=== PATIENT | female | born 1995 | race Caucasian/White ===

== ENCOUNTER 2023-07-08 10:28 | Emergency (ER) | payer OTHER ==
--- OUTSIDE RECORDS SUMMARY | 2023-07-08 10:34 | XMS REPORT | Continuity of Care Document ---
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 00:00:00 00:00:00 Visit [place] [id number] Communi 764922 Health 2020-05-27 2020-05-27 Office [facility] En counter/ Legacy 00:00:00 00:00:00 [facility] [id number] Communi 466175 Health 2020-05-27 2020-05-27 Office [facility] En counter/ Legacy 00:00:00 00:00:00 Visit Price [place] [id number] Communi 044896 Health 2020-05-27 2020-05-27 Office [facility] Encounter/ Legacy 00:00:00 00:00:00 Visit [facility] [id number] Com soheila 184083 Health 2020-05-27 2020-05-27 Office [facility] Encounter/ Legacy 00:00:00 00:00:00 Visit [facility] [id number] Com soheila [id number] Health 2020-05-27 2020-05-27 Office [facility] Encounter/ Legacy 00:00:00 00:00:00 Visit [facility] [id number] Com soheila [id number] Health 2020-05-27 2020-05-27 Office [facility] Encounter/ Legacy 00:00:00 00:00:00 Visit [facility] [id number] Com soheila [id number] [facility] 2020-05-27 2020-05-27 Office Patail, [facility] Encounter/ Legacy 00:00:00 00:00:00 Visit [facility] [id number] Com soheila [id number] [facility] 2020-05-27 2020-05-27 Office Chaz, Corazon [facility] Encou nter/ Legacy 00:00:00 00:00:00 Visit Diane Dawson [phone] Candy Weaver [id number] [facility] Health Patail, [facility] 2020-05-27 2020-05-27 Office Patail, [facility] Encounter/ Legacy 00:00:00 00:00:00 Visit [facility] [id number] Com soheila [id number] [facility] 2020-04-03 2020-04-03 Emergency ERLINDA, [facility] 064 [id number] [place] 00:00:00 00:00:00 BOSSMAN 392 Method i 2020-02-08 2020-02-08 Emergency ALEX, THA [facility] 2100 [id number] [place] 00:00:00 00:00:00 256 Method i 2019-10-18 2019-10-18 Emergency REICHL, [facility] 064 [id number] [place] 00:00:00 00:00:00 JOHN 031 Method i 2019-09-25 2019-09-25 Emergency REICHL, [facility] 064 [id number] [place] 00:00:00 00:00:00 JOHN 438 Method i 2019-08-17 2019-08-17 Emergency [facility] 064 [id number] [place] 00:00:00 00:00:00 457 Method i 2019-07-01 2019-07-01 Emergency VANDER [facility] 064 [id number] [place] 00:00:00 00:00:00 MONICA, 971 Method i FADIA 2016-10-10 2016-10-10 Emergency NOLAN, [facility] [id number] [place] 00:00:00 00:00:00 ZAINAB 455 Method i 2016-08-23 2016-08-23 Emergency PATY, [facility] 064 [id number] [place] 00:00:00 00:00:00 NICOLE 007 Method i 2015-12-09 2015-12-09 Outpatient VELAZQUEZ, [facility] 074 [id number] [place] 00:00:00 00:00:00 LATOIA [address] 2015-10-28 2015-10-28 Emergency KOENIG, [facility] 064 [id number] 85 [place] 00:00:00 00:00:00 DAI [address] 2015-10-14 2015-10-14 Emergency [facility] [id number] [place] 00:00:00 00:00:[address] Results Test Description Test Time Test Comments Results Result [facility] e Comments - XR WRIST 3 + V 2022-04-25 RT 18:36:00 [facility] : 1995 Sex: F FAX: Fercho Ricardo [phone] [place]: St: PRE Name: TASHA MATSON [facility] : 1995 Age/S: 26/F [facility] Unit #: [id number] Loc: [place] [address] Phys: Fercho Ricardo MD Acct: [id number] Dis Date: Status: PRE ER PHONE #: [phone] Exam Date: 04/25/2022 1833 FAX #: [phone] Reason: wrist pain, deformity EXAMS: CPT CODE: [id number] XR WRIST 3 + V RT 60164 REASON FOR EXAM: wrist pain, deformity EXAM ORDER DATE: 04/25/2022 5:54 PM Ordering: Fercho Ricardo MD Attending:Fercho Ricardo MD Location:[facility] PROCEDURE: - XR WRIST 3 + V RT FINDINGS: 3 views of the right wrist were obtained. The osseous structures are unremarkable in size and shape. The joint spaces are maintained. No evidence of fracture. The radiocarpal joint space is intact. Mild soft tissue edema. IMPRESSION: Mild soft tissue edema. No acute underlying fractures. at 1836 Reported and signed by: Robin Jasso M.D. CC: Fercho Ricardo MD Technologist: Anita Franco RT(R) Trnscrd Date/Time/By: 04/25/2022 (1835) : By: [email or web address] Orig Print D/T: S: 04/25/2022 (5470) PAGE 1 Signed Report Strep screen culture 2022-02-02 16:08:00 Test Item Value Reference Range Interpretation Comme nts Strep screen culture No beta hemolytic Sp ecimen InformationSpecimen isolate (test code = Streptococci isolated Source: ThroatSpecimen Site: Not 54-0) otherwise speci [place] [address] LEAD [id number] 18:23:2912 LEAD EKG FOR [facility] Test Date: [id number] Name: TASHA MATSON Department: 5520Patient ID: [id number] Room: Gender: F 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: 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: 1995 Requested By: RAFA QUINTERO Order Number: [id number] Reading MD: Kevin Osorio MeasurementsIntervals [place] Rate: 71 P: 74PR: 147 QRS: 81QRSD: 99 T: 80QT: 407 QTc: 429 Interpretive StatementsSINUS RHYTHMElectronically Signed On 11-29-2021 4:07:46 CDT by Kevin Osorio [place] [address] LEAD [id number] 17:20:1012 LEAD EKG FOR [facility] Test Date: 2212-00-37Dnu Name: TASHA MATSON Department: 5520Patient ID: [id number] Room: Gender: F 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: [id number]: 1995 Requested By: RAFA QUINTERO Order Number: [id number] Catherine MD: Kevin Osorio MeasurementsIntervals [place] Rate: 67 P: 69PR: 144 QRS: 75QRSD: 99 T: 86QT: 420 QTc: 435 Interpretive StatementsSINUS RHYTHMElectronically Signed On 11-29-2021 4:07:51 CDT by [facility] Ab+HIV1 p24 Ag SerPl Ql [id number] 16:02:13 Test Item Value Reference Range Interpretation Comments HIV 1+2 Ab+HIV1 p24 Ag SerPl Ql IA NEGATIVE Negative (test code = 84649-6) [facility] TROPONIN I POC docked [id number] 14:42:12 Test Item Value Reference Range Interpretation Comments Troponin POC (test 0.00 ng/mL 0.00-0.08 Physician code = 20929970) Notified BRIAN (test code = BRIAN) <0.08 ng/mL Normal>=0.08 ng/mL Positive for Myocardial injuryNote: The >=0.08 ng/mL cTnI is at the 99th percentile of the non-AMI population. Lab Interpretation Normal (test code = 69695-4) Located within [facility] CREATININE POC docked [id number] 14:35:10 Test Item Value Reference Range Interpretation Comments Creatinine POC (test 0.6 mg/dL 0.6-1.3 Physici an Notified code = 35148121) eGFR If non- Am >120 See_Comment [Aut omated message] (test code = 38517839) The s ystem which generated this result transmit solitario reference range : >=90 mL/min/1.7 3 m2. The reference r chetan was not used to interpret this result as normal/abnormal . eGFR If Am (test >120 See_Comment [A utomated message] code = 79182240) The system which generated this result transmit solitario reference range : >=90 mL/min/1.7 3 m2. The reference r chetan was not used to interpret this result as normal/abnormal . Lab Interpretation (test Normal code = 99624-8) Located within [facility] BMP POC docked [id number] 14:35:05 Test Item Value Reference Range Interpretation Comments Sodium POC (test code = 140 mmol/L 136-145 73893440) Potassium POC (test code 3.8 mmol/L 3.5-5.1 = 63815070) Chloride POC (test code 103 mmol/L 98-107 = 98442220) TCO2 POC (test code = 33 mmol/L 21-32 H Physic ashley Notified 46071664) Urea Nitrogen POC (test 13 mg/dL 7-18 code = 07555558) Glucose POC (test code = 97 mg/dL 74-106 52544272) Hemoglobin POC (test 13.9 g/dL 12-16 code = 80168451) Hematocrit POC (test 41.0 % 37.0-47.0 code = 05900413) Lab Interpretation (test Abnormal code = 35075-5) [facility] HUMERUS 2 + V [id number] 08:46:00 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 COMPARISON: None available. Location: [facility]. 2 views of the left humerus: No acute fracture or dislocation. Joint spaces are preserved. No erosive or destructive changes. Mineralization and soft tissues are normal. IMPRESSION: No acute fracture or dislocation. at 0846 Reported and signed by: Aurelio Alegre M.D. CC: Alice Finney NP Technologist: Mane Malhotra RT(R) Trnscrd Date/Time/By: 11/11/2020 (0846) : By: [email or web address] Orig Print D/T: S: 11/11/2020 (0849) PAGE 1 Signed ReportHerpes Simplex Virus [id number] 15:44:09 Test Item Value Reference Range Interpretation Comments Herpes Simplex Virus Genital (test code no = 4258) [facility], [id number] 15:44:09 Test Item Value Reference Range Interpretation Comments test, type (test code = ER 2106-3) [facility]nitrite, urine, fjketclodhhtzdst4516-90-75 15:44:09 Test Item Value Reference Range Interpretation Comments nitrite, urine, semiquantitative (test Neg code = 5802-4) [facility]ketones, urine, by test [id number] 15:44:09 Test Item Value Reference Range Interpretation Comments ketones, urine, by test strip (test Neg code = 5797-6) [facility]protein, urine, semiquantitative (dipstick)2020 15:44:09 Test Item Value Reference Range Interpretation Comments protein, urine, semiquantitative Neg (dipstick) (test code = 1753-3) [facility] CampusHerpes Simplex Virus [id number] 15:44:09 Test Item Value Reference Range Interpretation Comments Herpes Simplex Virus Genital (test code no = 5856-0) [facility] Campusurine [id number] 18:16:00 Test Item Value Reference Range Interpretation Comments urine culture (test code = 630-4) No growth [facility] A, multiples of [id number] 18:16:00 Test Item Value Reference Range Interpretation Comments dimeric inhibition A, multiples of 1.17 (?) median (test code = 74427) [facility] [id number] 18:16:00 Test Item Value Reference Range Interpretation Comments unconjugated estriol (test code = 1.50 NG/ML 34914) [facility] chorionic gonadotropin, total, serum, multiples of [id number] 18:16:00 Test Item Value Reference Range Interpretation Comments human chorionic gonadotropin, total, 1.27 (?) serum, multiples of median (test code = 4303) [facility] chorionic gonadotropin, total, [id number] 18:16:00 Test Item Value Reference Range Interpretation Comments human chorionic gonadotropin, 91012 m[iU]/mL total, serum (test code = 3386) [facility]alpha-1 fetoprotein, maternal ,serum, multiples of median 2020-06-23 18:16:00 Test Item Value Reference Range Interpretation Comments alpha-1 fetoprotein, maternal 0.93 (?) ,serum, multiples of median (test code = 4302) [facility] fetoprotein, [id number] 18:16:00 Test Item Value Reference Range Interpretation Comments alpha-1 fetoprotein, serum (test 44.0 ng/mL code = 2754) [facility]alpha-fetoprotein interpretation of [id number] 18:16:00 Test Item Value Reference Range Interpretation Comments alpha-fetoprotein *Screen Negative* interpretation of results (test code = 8076) [facility] Hospitalmeric inhibition A, multiples of wcfggi3624-03-47 18:16:00 Test Item Value Reference Range Interpretation Comments dimeric inhibition A, multiples of 1.17 (?) median (test code = 16516) [facility] Centeronjugated [id number] 18:16:00 Test Item Value Reference Range Interpretation Comments unconjugated estriol (test code = 1.50 NG/ML 92951) [facility] chorionic gonadotropin, total, serum, multiples of qsjqgt9428-03-06 18:16:00 Test Item Value Reference Range Interpretation Comments human chorionic gonadotropin, total, 1.27 (?) serum, multiples of median (test code = 4303) [facility] chorionic gonadotropin, total, [id number] 18:16:00 Test Item Value Reference Range Interpretation Comments human chorionic gonadotropin, 59531 m[IU]/mL total, serum (test code = 3386) [facility]alpha-1 fetoprotein, maternal ,serum, multiples of median 2020-06-23 18:16:00 Test Item Value Reference Range Interpretation Comments alpha-1 fetoprotein, maternal 0.93 (?) ,serum, multiples of median (test code = 4302) [facility] fetoprotein, [id number] 18:16:00 Test Item Value Reference Range Interpretation Comments alpha-1 fetoprotein, serum (test 44.0 ng/mL code = 2754) [facility]alpha-fetoprotein interpretation of tshpzjq6644-73-12 18:16:00 Test Item Value Reference Range Interpretation Comments alpha-fetoprotein *Screen Negative* interpretation of results (test code = 8076) [facility] Campusnitrite, urine, sthvgzhyuevcufoq4701-26-71 16:22:29 Test Item Value Reference Range Interpretation Comments nitrite, urine, semiquantitative (test Neg code = 5802-4) [facility] Campusketones, urine, by test [id number] 16:22:29 Test Item Value Reference Range Interpretation Comments ketones, urine, by test strip (test Neg code = 5797-6) [facility] Campusprotein, urine, semiquantitative (dipstick)2020-06-23 16:22:29 Test Item Value Reference Range Interpretation Comments protein, urine, semiquantitative Tr (dipstick) (test code = 1753-3) [facility] Campuspregnancy test, [id number] 16:22:29 Test Item Value Reference Range Interpretation Comments test, type (test code = ER 2106-3) [facility] CampusVaginal Culture [id number] 21:04:27 Test Item Value Reference Range Interpretation Comments Vaginal Culture Yeast (test code = negative 22964) [facility] CampusVaginal Culture [id number] 21:04:27 Test Item Value Reference Range Interpretation Comments Vaginal Culture Yeast (test code = negative 32446) [facility] Campusurine [id number] 21:03:54 Test Item Value Reference Range Interpretation Comments urine culture (test 25-50,000 cfu GBS, mixed code = 630-4) urogenital thuy [facility] Campushepatitis B surface [id number] 12:26:00 Test Item Value Reference Range Interpretation Comments hepatitis B surface antigen (test Negative Negative code = 79) [facility] CampusRh [id number] 12:26:00 Test Item Value Reference Range Interpretation Comments Rh antibody (test code = 256) Negative Negative [facility], [id number] 12:26:00 Test Item Value Reference Range Interpretation Comments hepatitis C antibody, serum (test code <0.1 0.0-0.9 = 5199-5) [facility] CampusHIV-CMIA (Chemiluminescent Microparticle Immuno Assay) 2020-05-27 12:26:00 Test Item Value Reference Range Interpretation Comments HIV-CMIA (Chemiluminescent Non Reactive Non Reactive Microparticle Immuno Assay) (test code = 273061) [facility] Campusrapid plasma reagin antibody, [id number] 12:26:00 Test Item Value Reference Range Interpretation Comments rapid plasma reagin antibody, Non Reactive Non Reactive serum (test code = 5291-0) [facility] [id number] 12:26:00 Test Item Value Reference Range Interpretation Comments Rh antigen (test code = 255) Positive [facility] CampusABO blood [id number] 12:26:00 Test Item Value Reference Range Interpretation Comments ABO blood group (test code = 116) O [facility] Campusimmature granulocytes, percentage of total cells, blood 2020-05-27 12:26:00 Test Item Value Reference Range Interpretation Comments immature granulocytes, percentage of 1 % total cells, blood (test code = 83106-6) [facility] Campusbasophil count, kpbukyzb8471-69-40 12:26:00 Test Item Value Reference Range Interpretation Comments basophil count, absolute (test 0.1 x10E3/uL 0.0-0.2 code = 55665-0) [facility] HealthEosinophil Absolute [id number] 12:26:00 Test Item Value Reference Range Interpretation Comments Eosinophil Absolute Count (test 0.2 X10E3/UL 0.0-0.4 code = 58379-7) [facility] Healthmonocyte count, blood, [id number] 12:26:00 Test Item Value Reference Range Interpretation Comments monocyte count, blood, automated 0.6 X10E3/UL 0.1-0.9 (test code = 742-7) [facility] Healthlymphocyte count, blood, [id number] 12:26:00 Test Item Value Reference Range Interpretation Comments lymphocyte count, blood, 2.1 X10E3/UL 0.7-3.1 automated (test code = 731-0) [facility] HealthAbsolute [id number] 12:26:00 Test Item Value Reference Range Interpretation Comments Absolute Neutrophils (test code 7.8 X10E3/UL 1.4-7.0 H = 18273-0) [facility] Healthbasophils as percent of blood [id number] 12:26:00 Test Item Value Reference Range Interpretation Comments basophils as percent of blood 1 % leukocytes (test code = 707-0) [facility] Healtheosinophils as percent of blood [id number] 12:26:00 Test Item Value Reference Range Interpretation Comments eosinophils as percent of blood 2 % leukocytes (test code = 713-8) [facility] Healthmonocytes as percent of blood nvyztigsek6364-74-50 12:26:00 Test Item Value Reference Range Interpretation Comments monocytes as percent of blood 6 % leukocytes (test code = 5905-5) [facility] Healthlymphocytes as percent of blood kehxnvuaed2337-43-55 12:26:00 Test Item Value Reference Range Interpretation Comments lymphocytes as percent of blood 19 % leukocytes (test code = 736-9) [facility] Healthneutrophils as percent of blood tniykuwfnz5671-78-32 12:26:00 Test Item Value Reference Range Interpretation Comments neutrophils as percent of blood 71 % leukocytes (test code = 770-8) [facility] Healthplatelet [id number] 12:26:00 Test Item Value Reference Range Interpretation Comments platelet count (test code = 244 X10E3/UL 150-450 777-3) [facility] Campusred blood cell distribution [id number] 12:26:00 Test Item Value Reference Range Interpretation Comments red blood cell distribution width 13.9 % 11.7-15.4 (test code = 788-0) [facility] corpuscular hemoglobin concentration, [id number] 12:26:00 Test Item Value Reference Range Interpretation Comments mean corpuscular hemoglobin 32.8 G/DL 31.5-35.7 concentration, RBC (test code = 786-4) [facility], [id number] 12:26:00 Test Item Value Reference Range Interpretation Comments mean corpuscular hemoglobin, RBC 29.9 pg 26.6-33.0 (test code = 785-6) [facility] corpuscular volume, [id number] 12:26:00 Test Item Value Reference Range Interpretation Comments mean corpuscular volume, RBC (test code 91 fL 79-97 = 787-2) [facility] [id number] 12:26:00 Test Item Value Reference Range Interpretation Comments hematocrit, blood (test code = 4544-3) 35.7 % 34.0-46.6 [facility], [id number] 12:26:00 Test Item Value Reference Range Interpretation Comments hemoglobin, blood (test code = 11.7 g/dL 11.1-15.9 718-7) [facility]throcyte (RBC) [id number] 12:26:00 Test Item Value Reference Range Interpretation Comments erythrocyte (RBC) count (test 3.91 X10E6/UL 3.77-5.28 code = 789-8) [facility]ukocyte count, [id number] 12:26:00 Test Item Value Reference Range Interpretation Comments leukocyte count, blood (test 10.7 X10E3/UL 3.4-10.8 code = 6690-2) [facility]hepat[facility] B surface [id number] 12:26:00 Test Item Value Reference Range Interpretation Comments hepatitis B surface antigen (test Negative Negative code = 29782-2) [facility] [id number] 12:26:00 Test Item Value Reference Range Interpretation Comments Rh antibody (test code = 256) Negative Negative [facility]HIV[facility]CMIA (Chemiluminescent Microparticle Immuno Assay) 2020-05-27 12:26:00 Test Item Value Reference Range Interpretation Comments HIV-CMIA (Chemiluminescent Non Reactive Non Reactive Microparticle Immuno Assay) (test code = 17772-3) [facility] [id number] 12:26:00 Test Item Value Reference Range Interpretation Comments Rh antigen (test code = 255) Positive [facility]AB[facility] blood [id number] 12:26:00 Test Item Value Reference Range Interpretation Comments ABO blood group (test code = 116) O [facility] Papillomavirus test [id number] 12:25:00 Test Item Value Reference Range Interpretation Comments Human Papillomavirus test result HPVNotTested (test code = 26052-3) [facility] Campusurine [id number] 12:24:00 Test Item Value Reference Range Interpretation Comments urine culture (test code = 630-4) BETAGB A [facility] CampusNeisseria gonorrhoeae DNA [id number] 12:24:00 Test Item Value Reference Range Interpretation Comments Neisseria gonorrhoeae DNA probe Negative Negative (test code = 19303-6) [facility]chlamydia DNA [id number] 12:24:00 Test Item Value Reference Range Interpretation Comments chlamydia DNA probe (test code = Negative Negative 66815-7) [facility] Campustrichomonas vaginalis, [id number] 12:24:00 Test Item Value Reference Range Interpretation Comments trichomonas vaginalis, urine (test Negative Negative code = 5813-1) [facility]nitrite, urine, [id number] 10:18:27 Test Item Value Reference Range Interpretation Comments nitrite, urine, semiquantitative (test Tr code = 5802-4) [facility] [Presence] in Respiratory specimen by GOOD with probe [id number] 10:15:51 Test Item Value Reference Range Interpretation Comments SARS coronavirus 2 RNA Not detected Not-Detected [Presence] in Respiratory specimen by GOOD with probe detection (test code = 78548-2) [facility] Notes Date/Time Note Provider Source 2022-04-25 18:01:00 [id number]:01:00 [facility] ([facility])EMERGENCY PROVIDER REPORTREPORT#:[id number] REPORT STATUS: SignedDATE:04/25/22 TIME: 1801 PATIENT: TASHA MATSON UNIT #: [id number]#: [id number] ROOM/BED:AGE: 26 SEX: F PCP PHYS: No Primary or Family PhysicianSERVICE AUTHOR: Fercho Ricardo MD * ALL edits or amendments must be made on the electronic/computer document * HPI-Wrist Prob/In j GeneralInitial Greet Date/Time 04/25/22 1750 PresentationChief Complaint Wrist injury R, Wris t pain R, Wrist swelling R, Wrist dec ROM RHx Obtained From Patient, EMSOnset Occurred Sudden, Today, Just prior to arrivalSymptom Duration Since onsetProgression since Onset UnchangedContext of Onset Home injury Free Text HPI NotesFree Text HPI NotesThis is a 26-year-ol d female no significant past medical history comes in for right wrist pain decreased range of motio n deformity that occurred when she was sitting down. Patient states she put her hand down first on the arm of the chair and all her pressure on it and she felt something pop. Patient denies allother complaints at this time. Review of Systems ROS StatementsAll systems rev neg except as marked. Focused Review of SystemsConstitutionalDenies: Chills, Fever, Lethargy. MusculoskeletalReports: Extremity pain , Extremity swelling, Joint pain, Joint swelling. SkinDenies: Abrasion, Laceration. NeurologicDenies: Focal weakness, Numbness. Past Medical History - AdultStated Complaint RIGHT WRIST PAINAllergiesCoded Allergies:clindamycin (Severe, HALLUCINATIONS 04/25/22) Home MedicationsActive ScriptsLABETALOL (TRANDATE) 20 0 MG PO Q12HR LABETALOL (TRANDATE) 200 MG PO Q12HR #60 Prov: 09/22/15NAPROXEN (NAPROSYN) 250 MG PO BID PRN PRN PAIN NAPROXEN (NAPROSYN) 250 MG PO BID PRN PRN PAIN #60 TABS Prov: 11/11/20 Reporte d MedicationsACETAMINOPHEN/CODEINE (TYLENOL WITH CODEINE #3 300/30 MG) AMOXICILLIN/CLAV K (AUGMENTIN 875/125 MG) 875 MG PO Q12H Review of Nursing Notes Rev avail, and agreePast Surgical History:Reports: . Smoking status for patients 13 years old or older: Never SmokerAmbulatory Status Independent Physical Exa m Vital SignsVital SignsFirst Documented: Result Date Time Pulse Ox 99 04/25 1750 B/P 121/79 04/25 1750 B/P Mean 93 04/25 1750 O2 Delivery Room air 04/25 1750 Temp 98.3 04/25 1750 Pulse 125 04/25 1750 Resp 16 04/25 1750 Last Documented: Result Date Time Pulse Ox 99 04/25 1750 B/P 121/79 04/25 1750 B/P Mean 93 04/25 175 0 O2 Delivery Room air 04/25 1750 Temp 98.3 04/25 1750 Pulse 125 04/25 1750 Resp 16 04/25 1750 Review of Vital Signs Reviewed Focused PEGeneral/Const General/Const Awake, Alert, No acute distress, Well appearing Appearance/Presentation In pain. MS Wrist/Hand * * Wrist/Hand Atraumatic, Inspection NL, Full range of motion, No swelling, No erythema, Non-tender, No snuffbox tenderness, No deformity, Neurologic intact, Vascular intact, No clubbing/cyanosis Text/Dict NoteRight wrist deformity radial head tender palpation neurovascular intact distallySkin Skin Color NL, Warm, Dry, Intact, Turgor NL, No swellingNeurologic Neurologic Oriented X3, Speech NL, No motor deficits, No sensory deficits Additional PEMS Head Head Atraumatic, NormocephalicEyes Eyes Atraumatic, PERRL, EOMI, No nystagmus, No periorbital redness, No periorbital swellingEars/Nose/Throat Ears/Nose/Throat Atraumatic, Airway patent, Mucous membranes moistMS Neck Neck Atraumatic, Supple, No meningismus, Full range of motion, No adenopathy,No swellingResp/Chest Respiratory/Chest Atraumatic, Breath sounds NL, Breath sounds = bilat, No respiratory distress, No rales, No rhonchi, No wheezingCardiovascular Cardiovascular Heart rate NL, Regular rhythm, Heart sounds NLAbdomen/GI Abdomen/GI Atraumatic, Soft, Non-tender, No guarding, No reboundMS Back Back Atraumatic, Inspection NL, Full range of motion, Painless range of motion, Non-tenderLymphatic Lymphatic No gross adenopathy, No cervical adenopathyMS Upper Extre m Upper Extremity/MS Atraumatic, Inspection NL, Full range of motion, No deformity, Neurologic intact, Vascular intactMS Lower Extrem Lower Ext/Pelvis/MS Atraumatic, Inspection NL, Full range of motion, No deformity, Neurologic intact , Vascular intactGenitourinary General Exam deferredRectum Rectum/Perineum Exam deferredPsychiatric Psychiatric Affect NL, Mood NL, Cognitive function NL Interpretation Diagnostics Lab Results InterpretationConsiderations Independ review imaging, Reviewed prior recordsResultsRecent Impressions:RADIOLOGY - XR WRIST 3 + V RT 04/25 1830 Report Impression - Status: SIGNED Entered: 04/25/20221839 IMPRESSION: Mild soft tissue edema. No acute underlying fractures.Impression By: ManishaDK - Robin echols M.D. Imaging StatementRadiographic studies reviewed and considered in the medical decision-making. Point of Care TestingPulse Oximetry Pulse Ox % 99 On: Room air Interpretation Interpreted by , Pulse oximetry normal Time 1805 Re-Evaluation MDM Re-Evaluation/ProgressRe-Evaluation/Progress Maciej e of Re-Eval 184 Re-Eval Status Improved Compartment SyndromeThere are no signs or symptoms of compartment syndrome in the injured extremity at the time of this examination. Any pain the patient has is in proportion to the injury, the peripheral circulation is intact, capillary refill is not delayed, and there is no numbness, tingling or paresthesia. Tissue Perfusion ReassessmentPatient tissue perfusion reassessment completed. ED CourseMedication(s) OrderedMedication(s) Ordered:Central Nervous System Agents Sig/Mikayla Start time Last Medication Dose Route Stop Time Status Admin Ketorolac 30 M G X1ED STA 04/25 1754 DC Tromethamine IV 04/25 175 5 Differential DiagnosisDifferential Diagnosis Abrasion, Abscess, Arthritis, Arthritis, gonococcal, Arthritis, gouty, Arthritis, pseudogout, Arthritis, rheumatoid, Arthritis, septic, Avasc necrosis lunate, Bite injury, Burn injury, Carpal tunnel syndrome,Cellulitis, Compartment syndrome, Contusion, DeQuervains tenosynovitis, Dislocation lunate, Dislocation scapho-lunate, Fracture, Howard's, Fracture, capitate, Fracture, Colle's, Fracture, distal radius, Fracture, distal ulna, Fracture, hamate, Fracture, lunate, Fracture, pisiform, Fracture, scaphoid, Fracture, Shoemaker's, Fracture, trapezoid , Fracture, triquetrum, Ganglion cyst, Gunshot wound wrist, Hemarthrosis, Hematoma, Laceration, Lymphangitis, Neurovascular injury, Open fracture, Penetrating injury wrist, Radial arter y injury, Radioulnar jct disruption, Scaphoid non-union, Stab wound wrist, Tendon injury, Tenosynovitis, Thrombophlebitis, Ulnar artery injury, Ulnar tunnel syndrome Patient Discharge Departure Vital Signs/ConditionVital SignsFirst Documented: Result Date Time Pulse Ox 99 / 1750 B/P 121/79 09/12 1750 B/P Mean 93 / 175 0 O2 Delivery Room air / 1750 Temp 98.3 09/12 1750 Pulse 125 09/12 1750 Resp 16 09/12 1750 Las t Documented: Result Date Time Pulse Ox 99 /12 1750 B/P 121/79 09/12 1750 B/P Mean 93 09/12 1750 O2 Delivery Room air 09/12 1750 Temp 98.3 09/12 1750 Pulse 125 09/12 1750 Resp 16 09/12 1750 All vital signs available at the time of this entry have been reviewed. Clinical ImpressionClinical ImpressionPrimary Impression: Right wrist sprainSecondary Impressions: Right wrist pain Disposition DecisionDischarge )( Discharged to Home Yes )( Time 1850 )( Date 04/25/22 COVID-19 Discharge PlanCDC Criteria Met for Testing NoTest Performed No CDC Recom for Isol Retest https://www.cdc.gov/coronavirus/2019-ncov/infect i on-control/control-recommendations.html Criteria Not Met for TestingThe patient did not meet criteria for acute COVID19 testing today in the emergency department. The patient has received COVID19 precautions and home quarantine information. Discharge/Care PlanCounseled Regarding Diagnosis, Imaging studies, Prescriptions, Need for follow-up, When to retur n to ED(Auto) PrescriptionsCurrent Visit ScriptsKETOROLAC (TORADOL) 10 MG PO Q6H PRN PRN PAIN KETOROLAC (TORADOL) 10 MG PO Q6H PRN PRN PAIN #20 TABS CYCLOBENZAPRINE HCL (FLEXERIL) 5 M G PO TID PRN PRN MUSCLE SPASMS/PAIN CYCLOBENZAPRIN E HCL (FLEXERIL) 5 MG PO TID PRN PRN MUSCLE SPASMS/PAIN #15 TABS Prescriptions Reviewed Risks, Benefits, Alternative treatmentPatient Instructions ED Wrist Splint, Velcro, ED Wrist SprainAdditional InstructionsMay return for any reason or worsening of condition.ReferralsProvider Referral: Liam Dawson MD Follow-Up: Call for appointment Address: [facility] [place] [address] [place] [address] Departure FormsPCP LISTWORK/SCHOOL EXCUSE VARIABLE Any Restrictions Off work/school 2 days Discharge NoteI have spoken with the patient and/or caregivers. I have explained the patient'scondition, diagnoses and treatment plan based on the information available to meat this time. I have answered the patient's and/or caregiver's questions and addressed any concerns . The patient and/or caregivers have as good an understanding of the patient's diagnosis, condition and treatment plan as can beexpected a t this point. The vital signs have been stable. Th e patient's condition is stable and appropriate fo r discharge from the emergency department. The patient will pursue further outpatient evaluatio n with the primary care physician or other designated or consulting physician as outlined i n the discharge instructions. The patient and/or caregivers are agreeable to this planof care and follow-up instructions have been explained in detail. The patient and/or caregivers have received these instructions in written format an d have expressed an understanding of the discharge instructions. The patient and/or caregivers are aware that any significant change in condition o r worsening of symptoms should prompt an immediate return to this or the closest emergency department or a call to 911. Extremity Inj Discharge NoteThe patient is discharged home wit h supportive care, a plan for pain control, and follow-up instructions that detail what to expec t over the next 48 hours andwhat symptoms should prompt immediate return to the ED, including the symptoms of compartment syndrome. Follow-up instructions have been explained in detail tothe patient, and the instructions have been provided in written format. The patient is comfortable with the plan of care and has expressed an understanding of the discharge instructions. The patient is aware that any significant change in condition or worsening of symptoms should prompt an immediate call to the primary or designated physician. If that is not successful the patient should call or return to this or the closest emergency department or call 911. Quality MeasuresBP F/U for HTN Referred for BP f/u < 4wk , F/u with PCP/other docSmoking Cessation Screened , non user at 1852RPT #:[id number] OF REPORTEDEmergency department [id number]:01:00V.[id number] tito ilable for patient [id number]:52:34 2020-11-11 08:09:00 [id number]:09:00 [facility] ([facility])EMERGENCY PROVIDER REPORTREPORT#:[id number] REPORT STATUS: SignedDATE:11/11/20 TIME: 0809 PATIENT: TASHA MATSON [place]ANS[place] UNIT #: [id number]#: [id number] ROOM/BED:AGE: 25 SEX: F PCP PHYS: N o Primary or Family PhysicianSERVICE AUTHOR: Alice Finney CREDIT MANAGER * ALL edits or amendments must be made on the electronic/computer document * HPI-Extremity Pro b Upper Free Text HPI NotesFree Text HPI [id number] female presents for laceration to left upper arm after slip and fallin ice crea m approximately 2 hours prior to ER arrival. She reports she was holding a glass cup when she fell, and cut her arm on broken glass. She denie s blunt head trauma/neck pain/back pain. No neurovascular deficit. Approximately3 cm V shape d laceration to left upper arm. GCS 15. PERRLA. EOMI. Ambulates normal/steady gait. GeneralConfirmed Patient YesPatient Type New patientInitial Greet Date/Time 11/11/20 0808 PresentationChief Complaint Arm problem LHx Obtained From PatientOnset Occurred Hours agoSymptom Duration Since onsetProgression since Onset ConstantCaused by AccidentalLocation Arm LSeverity: Current Mild ContextImmunization Status Not Up to Date Tetanus Review of Systems ROS StatementsAll systems rev neg except as marked. Focused Review of SystemsSkinReports: Laceration. Past Medical History - AdultStated Complaint LEFT SHOULDER PAIN AFTER FALLAllergiesCoded Allergies:clindamycin (Severe , HALLUCINATIONS 11/11/20) Home MedicationsActive ScriptsLABETALOL (TRANDATE) 200 MG PO Q12HR LABETALOL (TRANDATE) 200 MG PO Q12HR #60 Prov: 09/22/15 Reported MedicationsACETAMINOPHEN/CODEINE (TYLENOL WITH CODEINE #3 300/30 MG) AMOXICILLIN/CLAV K (AUGMENTIN 875/125 MG) 875 MG PO Q12H Pt reports no significant: Past medical historyPast Surgica l History:Reports: . Smoking status: Smoking status for patients 13 years old or older: Never Smoker Physical Exam Vital SignsVital SignsFirst Documented: Result Date Time Pulse Ox 100 11/11 0807 B/P 136/88 11/11 0807 B/P Mean 104 11/11 0807 O2 Delivery Room ai r 11/11 0807 Temp 36.4 11/11 0807 Pulse 88 11/11 0807 Resp 16 11/11 0807 Last Documented: Result Date Time Pulse Ox 100 11/11 0807 B/P 136/88 11/11 0807 B/P Mean 104 11/11 0807 O2 Delivery Room air 11/11 0807 Temp 36.4 11/11 0807 Pulse 88 11/11 0807 Resp 16 11/11 0807 Review of Vital Signs Reviewed Focused PEGeneral/Const General/Const Awake, Alert, Well appearingMS Nec k Neck Supple, Full range of motion, No swelling, Non-tenderResp/Chest Respiratory/Chest Breath sounds NL, Breath sounds = bilat, No respiratory distress, No rales, No rhonchi, No wheezingCardiovascular Cardiovascular Heart rate NL, Regular rhythm, Heart sounds NL, Peripheral circulation NLMS Upper Extrem Upper Extremity/MS Full range of motion, No swelling, Non-tender, N o snuffboxtenderness, No erythema, No deformity, Neurologic intact, Vascular intact, No compartment syndrome, No clubbing/cyanosisMS Wrist/Hand Wrist/Hand Atraumatic, Inspection NL, Full range of motion, No swelling, No erythema, Non-tender, No deformity, Neurologic intact, Vascular intact, No compartment syndrome, No clubbing/cyanosisSkin Skin Color NL, Warm, Dry, Turgor NL, No swelling Text/Dict NotesApproximately 3 cm V-shaped jagged laceration to left upper arm.Neurologic Neurologic Oriented X3, Speech NL, No motor deficits, No sensory deficits ImagesUpper Extremities Arm - Back Left[Embedded Image Not Available] 1) LACERATION Interpretation Diagnostics Lab Results InterpretationResultsRecent Impressions:RADIOLOG Y - XR HUMERUS 2 + V LT 11/11 0840 Report Impression - Status: SIGNED Entered: 11/11/2020 0849 IMPRESSION: No acute fracture or dislocation.Impression By: ManishaKeila - Aurelio Alegre M.D. Imaging StatementRadiographic studies reviewed and considered in the medical decision-making. Point of Care TestingPulse Oximetry Pulse Ox % 100 On: Room air Interpretation Interpreted by nh Time 0809 Procedures Laceration Management #1Start Time 0855Procedure Performed by ED NPConsent/Setup/Site Prep Verified correct patient, Informed consent provided, Consent from patient, Hand hygiene observed, Stand sterile technique)( Location of Woundleft upper armWound Length (cm) 3Local Anesthesia Lidocaine 2%, 3 mLWound Preparation Betadine, Normal saline)( Debridement NoneIrrigation CopiousForeign Body Explore/Removal Explored for foreign body, None foundUndermining/Margins Flaps alignedRepair Ski n Jim ((5))Closure Layers 1Post-Procedure/Complications Antibiotic oint applied, Dressing applied, No complications, Condition improved, Tolerated procedure well, Patient stable Re-Evaluation MDM Free Text MDM NotesFree Text MDM NotesPatient tolerated laceration repair well. Discussed need for follow-up with PCPor return here for staple removal. Discussed need to return to ER for new or worsening symptoms. Discussed wound care with patient. The vital signs have been stable. The patient does not have uncontrollable pain, intractable vomiting, or other significant symptoms. The patient's condition is stable and appropriate for discharge. The patient will pursue further outpatient evaluationwith the primary care physician or other designated or consulting physician as indicated in the discharge instructions. Re-Evaluation/ProgressRe-Evaluation/Progress Maciej e of Re-Eval 0900 Re-Eval Status Improved Eval Following Treatment Pt. feels better, Condition improved Pain Re-Evaluation Pain improved Exam Post Tx - General Active, Alert, Appears well Exam Post Tx - Sys Review Lungs clear Plan Post Re-Eval Plan discharge ED CourseMedication(s) OrderedMedication(s) Ordered:Cardiovascular Drug s Sig/Mikayla Start time Last Medication Dose Route Stop Time Status Admin Lidocaine HCl 20 ML X1ED STA 11/11 0808 DC I-DERMAL 11/11 08 Central Nervous System Agents Sig/Mikayla Start time Last Medication Dose Route Stop Time Status Admin Acetaminophen 650 MG X1ED STA 11/11 0808 DC PO 11/11 08 Electrolytic, Caloric, And Greg Sig/Sc h Start time Last Medication Dose Route Stop Time Status Admin Sodium Chloride 250 ML X1ED STA 11/11 0808 DC IRR 11/11 08 Serums, Toxoids, An d Vaccines Sig/Mikayla Start time Last Medication Dose Route Stop Time Status Admin Tetanus/Diphtheria 0.5 ML X1ED STA 11/11 0808 DC Toxoids IM 11/11 08 Skin And Mucous Membrane Agent Sig/Mikayla Star t time Last Medication Dose Route Stop Time Status Admin Bacitracin Zinc 0.9 GM X1ED STA 11/11 0808 DC TOPICAL 11/11 08 Patient Discharge Departur e Vital Signs/ConditionVital SignsFirst Documented : Result Date Time Pulse Ox 100 11/11 0807 B/P 136/88 11/11 0807 B/P Mean 104 11/11 0807 O2 Delivery Room air 11/11 0807 Temp 36.4 11/11 0807 Pulse 88 11/11 0807 Resp 16 11/11 0807 Last Documented: Result Date Time Pulse Ox 100 11/11 0807 B/P 136/88 11/11 0807 B/P Mean 104 11/11 0807 O2 Delivery Room air 11/11 0807 Temp 36.4 11/11 0807 Pulse 88 11/11 0807 Resp 16 11/11 0807 All vital signs available at the time of this entry have been reviewed. Condition Stable Clinical ImpressionClinical ImpressionPrimary Impression: Laceration of left upper arm Disposition DecisionDischarge )( Discharged to Home Yes )( Time 0903 )( Date 11/11/20 Discharge/Care PlanCounseled Regarding Diagnosis , Imaging studies, Prescriptions, Need for follow-up, When to return to ED(Auto) PrescriptionsCurrent Visit ScriptsNAPROXEN (NAPROSYN) 250 MG PO BID PRN PRN PAIN NAPROXEN (NAPROSYN) 250 MG PO BID PRN PRN PAIN #60 TABS Prescriptions Reviewed Risks, Benefits, Alternative treatmentPatient Instructions ED Laceration: All ClosuresReferralsPasadena [facility] - Medical Discharge NoteI have spoken with the patient and/or caregivers. I have explained the patient'scondition, diagnoses and treatment plan based on the information available to meat this time. I have answered the patient's and/or caregiver's questions and addressed any concerns . The patient and/or caregivers have as good an understanding of the patient's diagnosis, condition and treatment plan as can beexpected a t this point. The vital signs have been stable. Th e patient's condition is stable and appropriate fo r discharge from the emergency department. The patient will pursue further outpatient evaluatio n with the primary care physician or other designated or consulting physician as outlined i n the discharge instructions. The patient and/or caregivers are agreeable to this planof care and follow-up instructions have been explained in detail. The patient and/or caregivers have received these instructions in written format an d have expressed an understanding of the discharge instructions. The patient and/or caregivers are aware that any significant change in condition o r worsening of symptoms should prompt an immediate return to this or the closest emergency department or a call to 911. Extremity Inj Discharge NoteThe patient is discharged home wit h supportive care, a plan for pain control, and follow-up instructions that detail what to expec t over the next 48 hours andwhat symptoms should prompt immediate return to the ED, including the symptoms of compartment syndrome. Follow-up instructions have been explained in detail tothe patient, and the instructions have been provided in written format. The patient is comfortable with the plan of care and has expressed an understanding of the discharge instructions. The patient is aware that any significant change in condition or worsening of symptoms should prompt an immediate call to the primary or designated physician. If that is not successful the patient should call or return to this or the closest emergency department or call 911. Quality MeasuresBP F/U for HTN Referred for BP f/u < 4wk , F/u with PCP/other docSmoking Cessation Screened , non user at 0910RPT #:[id number] OF REPORTEDEmergency department [id number]:09:00V.[id number] a ilable for patient [id number]:11:15 2020-11-11 08:09:00 [id number]:09:00 [facility] ([facility])EMERGENCY PROVIDER REPORTREPORT#:[id number] REPORT STATUS: SignedDATE:11/11/20 TIME: 08 PATIENT: TASHA MATSON UNIT #: [id number]#: [id number] ROOM/BED:AGE: 25 SEX: F PCP PHYS: N o Primary or Family PhysicianSERVICE AUTHOR: Alice Finney CREDIT MANAGER * ALL edits or amendments must be made on the electronic/computer document * Alice Finney 11/11/20 0809:HPI-Extremity Prob Upper Free Text HPI NotesFree Text HPI [id number] female presents for laceration to left upper arm after slip and fallin ice cream approximately 2 hours prior to ER arrival. She reports she was holding a glass cup when she fell, and cut her arm on broken glass. She denies blunt head trauma/neck pain/back pain. No neurovascular deficit. Approximately3 cm V shaped laceration to left upper arm. GCS 15. PERRLA. EOMI. Ambulates normal/steady gait. GeneralConfirmed Patient YesPatient Type New patientInitial Greet Date/Time 11/11/20 0808 PresentationChief Complaint Arm problem LHx Obtained From PatientOnset Occurred Hours agoSymptom Duration Since onsetProgression since Onset ConstantCause d by AccidentalLocation Arm LSeverity: Current Mil d ContextImmunization Status Not Up to Date Arelis haines Review of Systems ROS StatementsAll systems rev neg except as marked. Focused Review of SystemsSkinReports: Laceration. Past Medical History - AdultStated Complaint LEFT SHOULDER PAIN AFTER FALLAllergiesCoded Allergies:clindamycin (Severe, HALLUCINATIONS 11/11/20) Home MedicationsActive ScriptsLABETALO L (TRANDATE) 200 MG PO Q12HR LABETALOL (TRANDATE) 200 MG PO Q12HR #60 Prov: 09/22/15 Reported MedicationsACETAMINOPHEN/CODEINE (TYLENOL WITH CODEINE #3 300/30 MG) AMOXICILLIN/CLAV K (AUGMENTIN 875/125 MG) 875 MG PO Q12H Pt reports no significant: Past medical historyPast Surgica l History:Reports: . Smoking status: Smoking status for patients 13 years old or older: Never Smoker Physical Exam Vital SignsVital SignsFirst Documented: Result Date Time Pulse Ox 100 11/11 0807 B/P 136/88 11/11 0807 B/P Mean 104 11/11 0807 O2 Delivery Room ai r 11/11 806 Temp 36.4 11/11 806 Pulse 88 11/11 806 Resp 16 11/11 08 Last Documented: Result Date Time Pulse Ox 100 11/11 0807 B/P 136/88 11/11 0807 B/P Mean 104 11/11 08 O2 Delivery Room air 11/11 806 Temp 36.4 11/11 806 Pulse 8 8 11/11 806 Resp 16 11/11 08 Review of Vital Signs Reviewed Focused PEGeneral/Const General/Const Awake, Alert, Well appearingMS Nec k Neck Supple, Full range of motion, No swelling, Non-tenderResp/Chest Respiratory/Chest Breath sounds NL, Breath sounds = bilat, No respiratory distress, No rales, No rhonchi, No wheezingCardiovascular Cardiovascular Heart rate NL, Regular rhythm, Heart sounds NL, Peripheral circulation NLMS Upper Extrem Upper Extremity/MS Full range of motion, No swelling, Non-tender, N o snuffboxtenderness, No erythema, No deformity, Neurologic intact, Vascular intact, No compartment syndrome, No clubbing/cyanosisMS Wrist/Hand Wrist/Hand Atraumatic, Inspection NL, Full range of motion, No swelling, No erythema, Non-tender, No deformity, Neurologic intact, Vascular intact, No compartment syndrome, No clubbing/cyanosisSkin Skin Color NL, Warm, Dry, Turgor NL, No swelling Text/Dict NotesApproximately 3 cm V-shaped jagged laceration to left upper arm.Neurologic Neurologic Oriented X3, Speech NL, No motor deficits, No sensory deficits ImagesUpper Extremities Arm - Back Left[Embedded Image Not Available] 1) LACERATION Interpretation Diagnostics Lab Results InterpretationResultsRecent Impressions:RADIOLOG Y - XR HUMERUS 2 + V LT 11/12 0740 Report Impression - Status: SIGNED Entered: 11/11/2020 0849 IMPRESSION: No acute fracture or dislocation.Impression By: ManishaTH4 - Aurelio Alegre M.D. Imaging StatementRadiographic studies reviewed and considered in the medical decision-making. Point of Care TestingPulse Oximetry Pulse Ox % 100 On: Room air Interpretation Interpreted by nh Time 0809 Procedures Laceration Management #1Start Time 0855Procedure Performed by ED NPConsent/Setup/Site Prep Verified correct patient, Informed consent provided, Consent from patient, Hand hygiene observed, Stand sterile technique)( Location of Woundleft upper armWound Length (cm) 3Local Anesthesia Lidocaine 2%, 3 mLWound Preparation Betadine, Normal saline)( Debridement NoneIrrigation CopiousForeign Body Explore/Removal Explored for foreign body, None foundUndermining/Margins Flaps alignedRepair Ski n [place] ((5))Closure Layers 1Post-Procedure/Complications Antibiotic oint applied, Dressing applied, No complications, Condition improved, Tolerated procedure well, Patient stable Re-Evaluation MDM Free Text MDM NotesFree Text MDM NotesPatient tolerated laceration repair well. Discussed need for follow-up with PCPor return here for staple removal. Discussed need to return to ER for new or worsening symptoms. Discussed wound care with patient. The vital signs have been stable. The patient does not have uncontrollable pain, intractable vomiting, or other significant symptoms. The patient's condition is stable and appropriate for discharge. The patient will pursue further outpatient evaluationwith the primary care physician or other designated or consulting physician as indicated in the discharge instructions. Re-Evaluation/ProgressRe-Evaluation/Progress Maciej e of Re-Eval 0900 Re-Eval Status Improved Eval Following Treatment Pt. feels better, Condition improved Pain Re-Evaluation Pain improved Exam Post Tx - General Active, Alert, Appears well Exam Post Tx - Sys Review Lungs clear Plan Post Re-Eval Plan discharge ED CourseMedication(s) OrderedMedication(s) Ordered:Cardiovascular Drug s Sig/Mikayla Start time Last Medication Dose Route Stop Time Status Admin Lidocaine HCl 20 ML X1ED STA 11/11 0808 DC I-DERMAL 03/31 0809 Central Nervous System Agents Sig/Mikayla Start time Last Medication Dose Route Stop Time Status Admin Acetaminophen 650 MG X1ED STA 11/11 0808 DC PO 11/11 0809 Electrolytic, Caloric, And Greg Sig/Sc h Start time Last Medication Dose Route Stop Time Status Admin Sodium Chloride 250 ML X1ED STA 11/11 0808 DC IRR 11/11 0809 Serums, Toxoids, An d Vaccines Sig/Mikayla Start time Last Medication Dos e Route Stop Time Status Admin Tetanus/Diphtheria 0.5 ML X1ED STA 11/11 0808 DC 11/11 Toxoids IM 11/11 0809 1107 Skin And Mucous Membrane Agent Sig/Mikayla Start time Last Medication Dose Route Stop Time Status Admin Bacitracin Zinc 0.9 GM X1ED STA 11/11 0808 DC TOPICAL 11/11 0809 Patien t Discharge Departure Vital Signs/ConditionVital SignsFirst Documented: Result Date Time Pulse O x 100 11/11 0807 B/P 136/88 11/11 0807 B/P Mean 10 4 11/11 0807 O2 Delivery Room air 11/11 0807 Temp 36.4 11/11 0807 Pulse 88 11/11 0807 Resp 16 11/11 0807 Last Documented: Result Date Time Pulse Ox 100 11/11 0807 B/P 136/88 11/11 0807 B/ P Mean 104 11/11 0807 O2 Delivery Room air 11/11 0807 Temp 36.4 11/11 0807 Pulse 88 11/11 0807 Resp 16 11/11 0807 All vital signs available at the time of this entry have been reviewed. Condition Stable Clinical ImpressionClinical ImpressionPrimary Impression: Laceration of left upper arm Disposition DecisionDischarge )( Discharged to Home Yes )( Time 0903 )( Date 11/11/20 Discharge/Care PlanCounseled Regarding Diagnosis, Imaging studies, Prescriptions, Need for follow-up, When to return to ED(Auto) PrescriptionsCurrent Visit ScriptsNAPROXEN (NAPROSYN) 250 MG PO BID PRN PRN PAIN NAPROXEN (NAPROSYN) 250 MG PO BID PRN PRN PAIN #60 TABS Prescriptions Reviewed Risks, Benefits, Alternative treatmentPatient Instructions ED Laceration: All ClosuresReferralsPasadena [facility]lth [facility]ntr - Medical Discharge NoteI have spoken with the patient and/or caregivers. I have explained the patient'scondition, diagnoses and treatment plan based on the information available to meat this time. I have answered the patient's and/or caregiver's questions and addressed any concerns . The patient and/or caregivers have as good an understanding of the patient's diagnosis, condition and treatment plan as can beexpected a t this point. The vital signs have been stable. Th e patient's condition is stable and appropriate fo r discharge from the emergency department. The patient will pursue further outpatient evaluatio n with the primary care physician or other designated or consulting physician as outlined i n the discharge instructions. The patient and/or caregivers are agreeable to this planof care and follow-up instructions have been explained in detail. The patient and/or caregivers have received these instructions in written format an d have expressed an understanding of the discharge instructions. The patient and/or caregivers are aware that any significant change in condition o r worsening of symptoms should prompt an immediate return to this or the closest emergency department or a call to 911. Extremity Inj Discharge NoteThe patient is discharged home wit h supportive care, a plan for pain control, and follow-up instructions that detail what to expec t over the next 48 hours andwhat symptoms should prompt immediate return to the ED, including the symptoms of compartment syndrome. Follow-up instructions have been explained in detail tothe patient, and the instructions have been provided in written format. The patient is comfortable with the plan of care and has expressed an understanding of the discharge instructions. The patient is aware that any significant change in condition or worsening of symptoms should prompt an immediate call to the primary or designated physician. If that is not successful the patient should call or return to this or the closest emergency department or call 911. Quality MeasuresBP F/U for HTN Referred for BP f/u < 4wk , F/u with PCP/other docSmoking Cessation Screened , non user Maciej Villarreal 11/11/20 1506:Patient Discharge Departure Supervising Physician Note MidLv Saw Pt AloneI have reviewed the PA/CREDIT MANAGER's note and plan of care. I was available for consultation as needed at all times during the patient's visit in the emergency department. I agree with the clinical impression, plan and disposition. at 0910Electronically Signed by Kodak Villarreal MD 11/11/20 at 1507RPT #:[id number] OF REPORTLongview [facility] department [id number]:09:00V.[id number] tito [facility] for patient [id number]:07:12
[2023-07-08 11:32] LABS: SARS-CoV-2 Antigen Rapid Res Negative (Negative)
[2023-07-08 13:07] LABS: Specific Gravity 1.018 (1.005-1.030); Urine Bacteria <20 /HPF (<20); Urine Bilirubin NEGATIVE (Negative); Urine Blood Negative (Negative); Urine Clarity Clear (Clear); Urine Color Light-Yellow (Yellow); Urine Glucose NEGATIVE (Negative); Urine Mucus Slight /HPF (None Seen); Urine Protein NEGATIVE (Negative); Urine RBC <5 /HPF (None Seen); Urine Urobilinogen Normal (Normal)
--- NOTE | 2023-07-08 13:11 | EDPHYS ---
Physician Documentation [facility] Name: Mali Chahal Age: 27 yrs Sex: Female : 1995 Arrival Date: 07/08/2023 Time: 10:28 Bed 17 Private MD: ED Physician Manda Mar HPI: 07/08 10:33 This 27 yrs old Female presents to ER via Unassigned with complaints of Flu Symptoms. snw 10:33 The patient or guardian reports airway noise, cough, difficulty breathing, flu snw symptoms. Onset: The symptoms/episode began/occurred suddenly, 2 day(s) ago, and became persistent. Associated signs and symptoms: Pertinent positives: rhinorrhea, sore throat, cough. Severity of symptoms: At their worst the symptoms were moderate. It is unknown whether or not the patient has had similar symptoms in the past. The patient has not recently seen a physician. pt is about 6mo , has had 1 care visit. 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 - Social history:: Smoking status: unknown. ROS: 10:34 Constitutional: Negative for fever, chills, and weight loss, Eyes: Negative for injury, snw pain, redness, and discharge, ENT: Negative for injury, pain, and discharge, Neck: Negative for injury, pain, and swelling, Cardiovascular: Negative for chest pain, palpitations, and edema, Respiratory: Negative for shortness of breath, wheezing, and pleuritic chest pain, + cough, congestion Abdomen/GI: Negative for abdominal pain, nausea, vomiting, diarrhea, and constipation, Back: Negative for injury and pain, : Negative for injury, bleeding, discharge, and swelling, MS/Extremity: Negative for injury and deformity, Skin: Negative for injury, rash, and discoloration, Neuro: Negative for headache, weakness, numbness, tingling, and seizure, Psych: Negative for depression, anxiety, suicide ideation, homicidal ideation, and hallucinations, Exam: 10:32 Constitutional: This is a well developed, well nourished patient who is awake, alert, snw and in no acute distress. Head/Face: Normocephalic, atraumatic. Eyes: Pupils equal round and reactive to light, extra-ocular motions intact. Lids and lashes normal. Conjunctiva and sclera are non-icteric and not injected. Cornea within normal limits. Periorbital areas with no swelling, redness, or edema. ENT: Nares patent. No nasal discharge, no septal abnormalities noted. Tympanic membranes are normal and external auditory canals are clear. Oropharynx with no redness, swelling, or masses, exudates, or evidence of obstruction, uvula midline. Mucous membranes moist. Neck: Trachea midline, no thyromegaly or masses palpated, and no cervical lymphadenopathy. Supple, full range of motion without nuchal rigidity, or vertebral point tenderness. No Meningismus. Chest/axilla: Normal chest wall appearance and motion. Nontender with no deformity. No lesions are appreciated. Cardiovascular: Regular rate and rhythm with a normal S1 and S2. No gallops, murmurs, or rubs. Normal PMI, no JVD. No pulse deficits. Respiratory: Lungs have equal breath sounds bilaterally, clear to auscultation and percussion. No rales, rhonchi or wheezes noted. No increased work of breathing, no retractions or nasal flaring. Back: No spinal tenderness. No costovertebral tenderness. Full range of motion. Skin: Warm, dry with normal turgor. Normal color with no rashes, no lesions, and no evidence of cellulitis. MS/ Extremity: Pulses equal, no cyanosis. Neurovascular intact. Full, normal range of motion. Neuro: Awake and alert, GCS 15, oriented to person, place, time, and situation. Cranial nerves II-XII grossly intact. Motor strength 5/5 in all extremities. Sensory grossly intact. Cerebellar exam normal. Normal gait. Psych: Awake, alert, with orientation to person, place and time. Behavior, mood, and affect are within normal limits. 10:32 Abdomen/GI: Inspection: gravid appearance, is noted, Bowel sounds: normal, Palpation: nontender, in all quadrants, Vital Signs: 10:32 BP 116 / 66; Pulse 75; Resp 18 S; Temp 97.8(O); Pulse Ox 100% on R/A; Weight 64.5 kg kc6 (M); Height 4 ft. 9 in. ; 11:30 BP 120 / 74; Pulse 78; Resp 18; Pulse Ox 100% on R/A; eh3 12:30 BP 121 / 76; Pulse 81; Resp 18; Pulse Ox 99% on R/A; eh3 13:00 BP 118 / 81; Pulse 83; Resp 18; Pulse Ox 99% on R/A; eh3 10:32 Body Mass Index 30.77 (64.50 kg, 144.78 cm) kc6 MDM: 10:30 Patient medically screened. snw 10:33 Differential diagnosis: bronchitis, flu, URI. Data reviewed: vital signs, nurses notes, snw lab test result(s). Counseling: I had a detailed discussion with the patient and/or guardian regarding the historical points, exam findings, and any diagnostic results supporting the discharge/admit diagnosis, lab results. 10:36 Data interpreted: Pulse oximetry: on room air is 100 %. Interpretation: normal. snw 13:01 Historians other than the Patient: EMS: [place]. Care significantly affected by snw the following chronic conditions: taking Suboxone for opioid abuse: pt out of her rx and is unable to get filled until 07/11/23. Response to treatment: There is no appreciated change of the patient's symptoms at this time. 07/08 10:31 Order name: Flu; Complete Time: 11:35 snw 07/08 10:31 Order name: SARS RAPID; Complete Time: 11:35 snw 07/08 11:35 Order name: Strep snw 07/08 11:35 Order name: Urine W/Microscopic (UAM); Complete Time: 13:09 snw 07/08 12:45 Order name: Throat Culture EDMS Administered Medications: 13:20 Drug: Acetaminophen PO 1000 mg PO once Route: PO; 3 13:36 Follow up: Response: No adverse reaction eh3 Disposition Summary: 07/08/23 13:10 Discharge Ordered Notes: Location: Home snw Condition: Stable snw Diagnosis - Other malaise and fatigue snw - Acute upper respiratory infection, unspecified snw Followup: snw - With: Emergency Department - When: As needed - Reason: Worsening of condition Followup: snw - With: Private Physician - When: 2 - 3 days - Reason: Recheck today's complaints, Continuance of care, Re-evaluation by your physician Discharge Instructions: - Discharge Summary Sheet snw - Third Trimester of snw - Fatigue snw - Second Trimester of snw - and Smoking snw - Who Are the Members of Your Care Team? snw Forms: - Medication Reconciliation Form snw - Thank You Letter snw - Antibiotic Education snw - Prescription Opioid Use snw - Patient Portal Instructions snw - Leadership Thank You Letter snw Signatures: Dispatcher [employer] EDEm Moore, FIDELIA-C RESEARCH SOIL SCIENTIST-Csnw Bibi Nagy, RN RN eh3 Cynthia Bond RN RN kc6
--- NOTE | 2023-07-08 13:11 | ER ---
Nurse's Notes [facility] Name: Mali Chahal Age: 27 yrs Sex: Female : 1995 Arrival Date: 07/08/2023 Time: 10:28 Bed 17 Private MD: Diagnosis: Other malaise and fatigue;Acute upper respiratory infection, unspecified Presentation: 07/08 10:32 Chief complaint: EMS states: flu like symptoms with chills for x2days. pt is 6-7mo kc6 . Coronavirus screen: At this time, the client does not indicate any symptoms associated with coronavirus-19. Ebola Screen: No symptoms or risks identified at this time. Initial Sepsis Screen: Does the patient meet any 2 criteria? No. Patient's initial sepsis screen is negative. Does the patient have a suspected source of infection? No. Patient's initial sepsis screen is negative. Risk Assessment: Do you want to hurt yourself or someone else? Patient reports no desire to harm self or others. Onset of symptoms was July 08, 2023. 10:32 Method Of Arrival: EMS [facility] 10:32 Acuity: THAD 3 kc6 TITLE MANAGER: 10:34 Verified 6 Historical: - Allergies: 10:34 Clindamycin; kc6 - PMHx: 10:34 preeclampsia; kc6 - PSHx: 10:34 section; kc6 - Immunization history:: Adult Immunizations not up to date. - Social history:: Smoking status: unknown. Screenin:30 [facility] ED Fall Risk Assessment (Adult) Score/Fall Risk Level 0 - 2 = Low Risk. Abuse eh3 screen: Denies threats or abuse. Denies injuries from another. Nutritional screening: No deficits noted. Tuberculosis screening: No symptoms or risk factors identified. Assessment: 10:30 General: Appears in no apparent distress. uncomfortable, Behavior is cooperative, eh3 anxious. Pain: Complains of pain in generalized. Neuro: Level of Consciousness is awake, alert, obeys commands, Oriented to person, place, time, situation. Cardiovascular: Capillary refill < 3 seconds Patient's skin is warm and dry. Respiratory: Airway is patent Respiratory effort is even, unlabored, Respiratory pattern is regular, symmetrical. GI: Abdomen is round non-distended. Derm: Skin is pink, warm \T\ dry. Musculoskeletal: Circulation, motion, and sensation intact. 11:30 Reassessment: Patient appears in no apparent distress at this time. Patient and/or eh3 family updated on plan of care and expected duration. Pain level reassessed. Patient is alert, oriented x 3, equal unlabored respirations, skin warm/dry/pink. 12:30 Reassessment: Patient appears in no apparent distress at this time. Patient and/or eh3 family updated on plan of care and expected duration. Pain level reassessed. Patient is alert, oriented x 3, equal unlabored respirations, skin warm/dry/pink. 13:30 Reassessment: Patient appears in no apparent distress at this time. Patient and/or eh3 family updated on plan of care and expected duration. Pain level reassessed. Patient is alert, oriented x 3, equal unlabored respirations, skin warm/dry/pink. Vital Signs: 10:32 BP 116 / 66; Pulse 75; Resp 18 S; Temp 97.8(O); Pulse Ox 100% on R/A; Weight 64.5 kg kc6 (M); Height 4 ft. 9 in. ; 11:30 BP 120 / 74; Pulse 78; Resp 18; Pulse Ox 100% on R/A; eh3 12:30 BP 121 / 76; Pulse 81; Resp 18; Pulse Ox 99% on R/A; eh3 13:00 BP 118 / 81; Pulse 83; Resp 18; Pulse Ox 99% on R/A; eh3 10:32 Body Mass Index 30.77 (64.50 kg, 144.78 cm) [facility] ED Course: 10:30 Patient arrived in ED. snw 10:30 Manda Mar MD is Attending Physician. snw 10:30 Em Silver FNP-C is PHCP. snw 10:30 Patient has correct armband on for positive identification. Bed in low position. Call eh3 light in reach. Side rails up X2. Provided Education on: use of call mcclellan. Pulse ox on. NIBP on. 10:34 Triage completed. kc6 10:34 Arm band placed on. kc6 12:18 Bibi Nagy, RN is Primary Nurse. 3 13:40 No provider procedures requiring assistance completed. Patient did not have IV access eh3 during this emergency room visit. Administered Medications: 13:20 Drug: Acetaminophen PO 1000 mg PO once Route: PO; 3 13:36 Follow up: Response: No adverse reaction 3 Medication: 13:40 VIS not applicable for this client. 3 Outcome: 13:10 Discharge ordered by MD. ballard 13:40 Discharged to home ambulatory, [facility] 13:40 Condition: stable 13:40 Discharge instructions given to patient, Instructed on discharge instructions, follow up and referral plans. Demonstrated understanding of instructions, follow-up care, 13:41 Patient left the ED. 3 Signatures: Em Silver, SUPERVISOR PHOTOENGRAVING-C SUPERVISOR PHOTOENGRAVING-Csnw Bibi Nagy, RN RN eh3 Cynthia Bond RN RN kc6
[2023-07-08] MEDS ORDERED: ACETAMINOPHEN 500 MG TAB ONE (13:44)
[2023-07-08 14:31] VITALS: TEMP 97.8
[2023-07-08 14:34] VITALS: O2SAT 99
[2023-07-08 14:35] VITALS: BP 118/81
== END 2023-07-08 13:41 | disposition home or self-care (01) ==
LOC: ER 10:28
DX: O99.512 Diseases of the respiratory system complicating pregnancy, second trimester (principal); J06.9 Acute upper respiratory infection, unspecified; Z3A.24 24 weeks gestation of pregnancy; Z11.52 Encounter for screening for COVID-19; Z88.3 Allergy status to other anti-infective agents
CPT/HCPCS: 36415; 81001; 87070; 87081; 87804; 87811; 99284

== ENCOUNTER → 2023-10-22 | Emergency (ER) | payer OTHER ==
[~2023-10-22] MED LIST: LABETALOL 20 MG/4ML SYRINGE IV ONE; Magnesium Sulfate 2gm IVPB 2 G/50 ML BAG IV ONE; Magnesium Sulfate 2gm IVPB 4 G/100 ML BAG IV ONE
--- NOTE | 2023-10-22 23:08 | ER ---
Nurse's Notes [facility] Name: Mali Chahal Age: 28 yrs Sex: Female : 1995 Arrival Date: 10/22/2023 Time: 22:22 Bed 1 Private MD: Diagnosis: Severe pre-eclampsia, unspecified trimester;Elevated blood-pressure reading, without diagnosis of hypertension;Headache;Visual Disturbance;Pedal Edema Presentation: 10/21 22:27 Chief complaint: EMS states: called out for bilateral leg swelling. pt reports blood as6 pressure has been high, having headaches and significant leg swelling. Coronavirus screen: At this time, the client does not indicate any symptoms associated with coronavirus-19. Ebola Screen: No symptoms or risks identified at this time. Initial Sepsis Screen: Does the patient meet any 2 criteria? No. Patient's initial sepsis screen is negative. Does the patient have a suspected source of infection? No. Patient's initial sepsis screen is negative. Risk Assessment: Do you want to hurt yourself or someone else? Patient reports no desire to harm self or others. Onset of symptoms was October 22, 2023. 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 - Social history:: Smoking status: Patient/guardian denies using tobacco. Screenin:14 [facility] ED Fall Risk Assessment (Adult) History of falling in the last 3 months, as6 including since admission No falls in past 3 months (0 pts) Confusion or Disorientation No (0 pts) Intoxicated or Sedated No (0 pts) Impaired Gait No (0 pts) Mobility Assist Device Used No (0 pt) Altered Elimination No (0 pt) Score/Fall Risk Level 0 - 2 = Low Risk Oriented to surroundings, Maintained a safe environment, Educated pt \T\ family on fall prevention, incl call for assistance when getting out of bed, Hourly rounding (assess needs \T\ fall precautionary measures) done. Abuse screen: Denies threats or abuse. Denies injuries from another. Nutritional screening: No deficits noted. Tuberculosis screening: No symptoms or risk factors identified. Assessment: 22:28 General: Appears in no apparent distress. uncomfortable, Behavior is calm, cooperative. as6 Pain: Complains of pain in right leg and left leg. Neuro: Level of Consciousness is awake, alert, obeys commands, Oriented to person, place, time, situation, Reports headache. Cardiovascular: Edema is 4+ to left upper thigh, left lower thigh, left knee, left midcalf, left ankle, left foot, left toes, right upper thigh, right lower thigh, right knee, right midcalf, right ankle, right foot and right toes pitting to left upper thigh, left lower thigh, left knee, left midcalf, left ankle, left foot, left toes, right upper thigh, right lower thigh, right knee, right midcalf, right ankle, right foot and right toes. Respiratory: Respiratory effort is even, unlabored, Respiratory pattern is regular, symmetrical. GI: Abdomen is round distended. : No deficits noted. No signs and/or symptoms were reported regarding the genitourinary system. EENT: No deficits noted. No signs and/or symptoms were reported regarding the EENT system. Derm: Skin is intact. Musculoskeletal: Circulation, motion, and sensation intact. Vital Signs: 22:26 BP 172 / 106; Pulse 78; Resp 16 S; Temp 98; Pulse Ox 97% on R/A; Weight 68.04 kg (R); as6 Height 5 ft. 4 in. (R); Pain 6/10; 22:45 BP 165 / 95; as6 23:00 BP 158 / 99; as6 23:06 BP 142 / 90; Pulse 79; Resp 15 S; Pulse Ox 96% on R/A; as6 23:22 BP 149 / 94; Pulse 72; Resp 16 S; Pulse Ox 100% on R/A; as6 23:32 BP 148 / 91; Pulse 88; Resp 16 S; Pulse Ox 97% on R/A; as6 23:44 BP 149 / 100; as6 23:53 BP 147 / 93; Pulse 63; Resp 18 S; Pulse Ox 97% on R/A; as6 22:26 Body Mass Index 25.75 (68.04 kg, 162.56 cm) as6 22:26 Pain Scale: Adult as6 ED Course: 22:24 Patient arrived in ED. rv1 22:26 Flakito Cassidy DO is Attending Physician. ms3 22:26 George Ac, JANE is Primary Nurse. as6 22:26 Arm band placed on. as6 22:30 Triage completed. as6 22:43 Initial lab(s) drawn, by me, sent to lab. Inserted saline lock: 20 gauge in right as6 forearm, using aseptic technique. Blood collected. 23:14 Bed in low position. Call light in reach. Side rails up X2. Client placed on continuous as6 cardiac and pulse oximetry monitoring. NIBP monitoring applied. telemetry monitor on. 23:14 No provider procedures requiring assistance completed. Patient transferred, IV remains as6 in place. 23:15 Provided Education on: need for transfer . as6 Administered Medications: 22:52 Drug: Magnesium Sulfate IVPB 4 grams IVPB once over 20 mins Route: IVPB; Infused Over: as6 20 mins; Site: right forearm; 10/22 00:09 Follow up: Response: No adverse reaction; IV Status: Completed infusion; IV Intake: as6 100ml 10/21 23:03 Drug: Labetalol IV 10 mg IV at calculated rate once Route: IV; Rate: calculated rate; as6 Site: right forearm; 10/22 00:10 Follow up: Response: No adverse reaction; IV Status: Completed infusion; IV Intake: 2ml as6 10/21 23:25 Drug: Magnesium Sulfate IVPB 2 grams IVPB once over 20 mins Route: IVPB; Infused Over: as6 20 mins; Site: right forearm; 10/22 00:10 Follow up: Response: No adverse reaction; IV Status: Completed infusion; IV Intake: [id number] 10/21 23:46 Drug: Labetalol IV 10 mg IV at calculated rate once Route: IV; Rate: calculated rate; as6 Site: right antecubital; 10/22 00:10 Follow up: Response: No adverse reaction; IV Status: Completed infusion; IV Intake: 2ml as6 Medication: 10/21 23:05 VIS not applicable for this client. as6 Intake: 10/22 00:09 IV: 100ml; Total: 100ml. as6 00:10 IV: 50ml; Total: 150ml. as6 00:10 IV: 2ml; Total: 152ml. as6 00:10 IV: 2ml; Total: 154ml. as6 Outcome: 10/21 23:07 ER care complete, transfer ordered by . ms3 23:14 Transferred by ground EMS to [facility], Transfer form as6 completed. 23:14 Condition: stable 23:14 Instructed on the need for transfer, 10/22 00:10 Patient left the ED. as6 Signatures: Flakito Cassidy, DO ms3 George Ac, RN RN as6 Cyndi Flower rv1
--- NOTE | 2023-10-22 23:08 | EDPHYS ---
Physician Documentation [facility] Name: Mali Chahal Age: 28 yrs Sex: Female : 1995 Arrival Date: 10/22/2023 Time: 22:22 Bed 1 Private MD: ED Physician Flakito Cassidy HPI: 10/22 00:02 This 28 yrs old Female presents to ER via EMS with complaints of Leg swelling. ms3 00:02 28-year-old female with past medical history of preeclampsia presents to the emergency ms3 department via [facility] for lower extremity swelling. EMS notes patient's blood pressure 190/120. Patient endorses headache, spots in her vision, and lower extremity swelling. Patient states she is having lower extremity pain. Patient denies any alleviating or inciting factors. 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 - Social history:: Smoking status: Patient/guardian denies using tobacco. ROS: 10/22 00:02 Constitutional: Negative for fever, and chills. Neck: Negative for injury, pain, and ms3 swelling, Cardiovascular: Negative for chest pain, and palpitations. Respiratory: Negative for shortness of breath, cough, wheezing, and pleuritic chest pain, Abdomen/GI: Negative for abdominal pain, nausea, vomiting, diarrhea, and constipation, MS/extremity: Positive for Lower extremity swelling, Neuro: Positive for headache, All other systems are negative, Exam: 00:02 Constitutional: This is a well developed, well nourished patient who is awake, alert, ms3 and in no acute distress. Head/Face: Normocephalic, atraumatic. Chest/axilla: Normal chest wall appearance and motion. Nontender with no deformity. Cardiovascular: Regular rate and rhythm with a normal S1 and S2. No gallops, murmurs, or rubs. Normal PMI, no JVD. No pulse deficits. Respiratory: Lungs have equal breath sounds bilaterally, clear to auscultation and percussion. No rales, rhonchi or wheezes noted. No increased work of breathing, no retractions or nasal flaring. 00:02 Abdomen/GI: Inspection: gravid appearance, is noted, Bowel sounds: normal, Palpation: abdomen is soft and non-tender, FHT 132, 00:02 Musculoskeletal/extremity: Severe pedal edema in bilateral lower extremities. Vital Signs: 10/21 22:26 BP 172 / 106; Pulse 78; Resp 16 S; Temp 98; Pulse Ox 97% on R/A; Weight 68.04 kg (R); as6 Height 5 ft. 4 in. (R); Pain /; 22:45 BP 165 / 95; as6 23:00 BP 158 / 99; as6 23:06 BP 142 / 90; Pulse 79; Resp 15 S; Pulse Ox 96% on R/A; as6 23:22 BP 149 / 94; Pulse 72; Resp 16 S; Pulse Ox 100% on R/A; as6 23:32 BP 148 / 91; Pulse 88; Resp 16 S; Pulse Ox 97% on R/A; as6 23:44 BP 149 / 100; as6 23:53 BP 147 / 93; Pulse 63; Resp 18 S; Pulse Ox 97% on R/A; as6 22:26 Body Mass Index 25.75 (68.04 kg, 162.56 cm) as6 22:26 Pain Scale: Adult as6 MDM: 22:26 Patient medically screened. ms3 10/22 00:02 Differential diagnosis: Preeclampsia versus help syndrome versus anemia. Data reviewed: ms3 vital signs, nurses notes, lab test result(s), and as a result, I will Transfer to facility with obstetrics. Consideration of Admission/Observation Patient transferred to [facility] for obstetrics. Management of patient was discussed with the following: Discussed case with who recommends a 6 g IV magnesium and blood pressure control with labetalol. I considered the following discharge prescriptions or medication management in the emergency department Medications were administered in the Emergency Department. See MAR. Historians other than the Patient: EMS: [facility]. Care significantly affected by the following chronic conditions: Hypertension. Counseling: I had a detailed discussion with the patient and/or guardian regarding the historical points, exam findings, and any diagnostic results supporting the discharge/admit diagnosis, lab results, the need to transfer to another facility, [facility] does not immediately have the required specialist. ED course: Discussed necessity for transfer with patient. Patient understands and agrees with plan. All questions were answered. 10/21 22:31 Order name: CBC with Diff; Complete Time: 00:00 ms3 10/21 22:31 Order name: CMP; Complete Time: 00:00 ms3 10/21 22:31 Order name: Magnesium; Complete Time: 00:00 ms3 10/21 22:31 Order name: IV Start; Complete Time: 22:42 ms3 10/21 22:31 Order name: Heart Tones; Complete Time: 22:42 ms3 10/21 22:53 Order name: Misc. Order: RECOLLECT ALL LABS; Complete Time: 23:10 rv1 Administered Medications: 10/21 22:52 Drug: Magnesium Sulfate IVPB 4 grams IVPB once over 20 mins Route: IVPB; Infused Over: as6 20 mins; Site: right forearm; 10/22 00:09 Follow up: Response: No adverse reaction; IV Status: Completed infusion; IV Intake: as6 100ml 10/21 23:03 Drug: Labetalol IV 10 mg IV at calculated rate once Route: IV; Rate: calculated rate; as6 Site: right forearm; 10/22 00:10 Follow up: Response: No adverse reaction; IV Status: Completed infusion; IV Intake: 2ml as6 10/21 23:25 Drug: Magnesium Sulfate IVPB 2 grams IVPB once over 20 mins Route: IVPB; Infused Over: as6 20 mins; Site: right forearm; 10/22 00:10 Follow up: Response: No adverse reaction; IV Status: Completed infusion; IV Intake: [id number] 10/21 23:46 Drug: Labetalol IV 10 mg IV at calculated rate once Route: IV; Rate: calculated rate; as6 Site: right antecubital; 10/22 00:10 Follow up: Response: No adverse reaction; IV Status: Completed infusion; IV Intake: 2ml as6 Disposition Summary: 10/22/23 23:07 Transfer Ordered Notes: Transfer Location: [facility] ms3 Reason: Higher level of care ms3 Condition: Serious ms3 Problem: new ms3 Symptoms: are unchanged ms3 Accepting Physician: Dr Stevenson(10/23/23 00:10) as6 Diagnosis - Severe pre-eclampsia, unspecified trimester ms3 - Elevated blood-pressure reading, without diagnosis of hypertension ms3 - Headache ms3 - Visual Disturbance ms3 - Pedal Edema ms3 Forms: - Medication Reconciliation Form ms3 - SBAR form ms3 Critical care time excluding procedures: 00:07 Critical care time: Bedside Care: 30 minutes, Consultation: 5 minutes, Family ms3 Intervention: 5 minutes. Total time: 40 minutes Signatures: Dispatcher [employer] Flakito Moffett, DO ms3 George Ac RN RN as6 Cyndi Flower rv1 Corrections: (The following items were deleted from the chart) 00:10 10/21 23:07 Dr Stevenson ms3 as6
[2023-10-22 23:22] LABS: Absolute Basophils 0.1 K/uL (0-0.5); Absolute Eosinophils 0.1 K/uL (0-0.5); Basophils % 0.7 % (0-1.3); Hematocrit 26.5 % (36.0-45.0); Lymphocytes % 26.4 % (15.3-44.8); MCV 81.2 fL (80-100); MPV 10.2 fL (7.6-11.3); Platelets 149 thou/uL (152-406); RBC Red Blood Cell Count 3.26 M/uL (3.86-4.86)
[2023-10-22 23:30] LABS: Albumin 1.9 g/dL (3.4-5.0); Albumin/Globulin Ratio 0.5 (1.1-1.8); Anion Gap 10.4 mEq/L (5.0-15.0); Bilirubin Total 0.2 mg/dL (0.2-1.0); Globulin 3.9 g/dL (2.3-3.5); Magnesium 2.5 mg/dL (1.6-2.4); Potassium 3.4 mEq/L (3.5-5.1); Protein, Total 5.8 g/dL (6.4-8.2)
[2023-10-23 01:18] VITALS: BP 147/93; TEMP 98; O2SAT 97
== END ==
LOC: ER 22:22
DX: O14.13 Severe pre-eclampsia, third trimester (principal); Z3A.31 31 weeks gestation of pregnancy; Z88.3 Allergy status to other anti-infective agents
CPT/HCPCS: 85025; 36415; 83735; 80053; 99285; J3475 ×2

== ENCOUNTER 2024-10-07 14:18 | Emergency (ER) | payer OTHER ==
--- NOTE | 2024-10-07 14:38 | ER ---
Nurse's Notes [facility] Name: Mali Chahal Age: 29 yrs Sex: Female : 1995 Arrival Date: 10/07/2024 Time: 14:18 Bed 18 Private MD: Diagnosis: Pseudoseizure Presentation: 10/07 14:23 Chief complaint: EMS states: toned out for possible seizure activity. Police on scene me1 report she seemed to have seizure activity about 8 times with postictal state after some. No official seizure dx but patient reports seizures with anxiety. 20g RAC. Coronavirus screen: Vaccine status: Patient reports being unvaccinated. Ebola Screen: No symptoms or risks identified at this time. Initial Sepsis Screen: Does the patient meet any 2 criteria? HR > 90 bpm. Does the patient have a suspected source of infection? No. Patient's initial sepsis screen is negative. Risk Assessment: Do you want to hurt yourself or someone else? Patient reports no desire to harm self or others. Onset of symptoms was October 07, 2024. Care prior to arrival: IV initiated. 20 GA, in the right antecubital area. 14:23 Method Of Arrival: EMS: [facility] 14:23 Acuity: THAD 3 me1 Triage Assessment: 14:27 General: Appears in no apparent distress. 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 Pain: Denies pain. EENT: No signs and/or symptoms were reported regarding the EENT system. Neuro: Level of Consciousness is awake, alert, obeys commands, Oriented to person, place, time, situation, Appropriate for age. Neuro: Reports Seizure activity reported prior to arrival. Cardiovascular: Patient's skin is warm and dry. Respiratory: Airway is patent Respiratory effort is even, unlabored, Respiratory pattern is regular, symmetrical. GI: No signs and/or symptoms were reported involving the gastrointestinal system. : No signs and/or symptoms were reported regarding the genitourinary system. Derm: Skin is intact, is healthy with good turgor, Skin is pink, warm \T\ dry. Musculoskeletal: No signs and/or symptoms reported regarding the musculoskeletal system. 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 - Infectious Disease History:: Denies. - Social history:: Smoking status: Patient reports the use of cigarette tobacco products, smokes one-half pack cigarettes per day. Screenin:29 [facility] ED Fall Risk Assessment (Adult) History of falling in the last 3 months, me1 including since admission No falls in past 3 months (0 pts) Confusion or Disorientation No (0 pts) Intoxicated or Sedated No (0 pts) Impaired Gait No (0 pts) Mobility Assist Device Used No (0 pt) Altered Elimination No (0 pt) Score/Fall Risk Level 0 - 2 = Low Risk Maintained a safe environment, Provided non-skid footwear, Hourly rounding (assess needs \T\ fall precautionary measures) done. Abuse screen: Denies threats or abuse. Nutritional screening: No deficits noted. Tuberculosis screening: No symptoms or risk factors identified. Assessment: 14:29 General: See triage assessment.. me1 Vital Signs: 14:23 BP 119 / 87; Pulse 103; Resp 17; Temp 98.2; Pulse Ox 100% ; Weight 52.16 kg; Height 4 me1 ft. 11 in. ; Pain 0/10; 15:00 BP 128 / 70; Pulse 73; Resp 18; Pulse Ox 98% ; me1 14:23 Body Mass Index 23.23 (52.16 kg, 149.86 cm) me1 14:23 Pain Scale: Adult me1 Caridad Coma Score: 14:27 Eye Response: spontaneous(4). Motor Response: obeys commands(6). Verbal Response: me1 oriented(5). Total: 15. ED Course: 14:23 Patient arrived in ED. me1 14:23 Flakito Cassidy DO is Attending Physician. ms3 14:27 Triage completed. me1 14:27 Arm band placed on Patient placed in an exam room. me1 14:29 Patient has correct armband on for positive identification. Bed in low position. Call me1 light in reach. Side rails up X 1. Seizure precautions initiated. Provided Education on: POC. Verbalized understanding.. Client placed on continuous cardiac and pulse oximetry monitoring. NIBP monitoring applied. Pulse ox on. NIBP on. 14:29 No provider procedures requiring assistance completed. Maintain EMS IV. Dressing me1 intact. Good blood return noted. Site clean \T\ dry. Gauge \T\ site: 250g RAC. 14:37 Antonio Matias MD is Referral Physician. ms3 14:38 Shantel Helton, RN is Primary Nurse. me1 15:12 IV discontinued, intact, bleeding controlled, No redness/swelling at site. Pressure me1 dressing applied. Administered Medications: 15:03 Drug: LORazepam PO 0.5 mg PO once Route: PO; me1 15:07 Follow up: Response: No adverse reaction me1 Medication: 14:29 VIS not applicable for this client. me1 Outcome: 14:38 Discharge ordered by . ms3 15:12 Discharged to Law Enforcement me1 15:12 Condition: stable 15:12 Discharge instructions given to patient, police, Instructed on discharge instructions, follow up and referral plans. Demonstrated understanding of instructions, follow-up care, 15:13 Patient left the ED. me1 Signatures: Flakito Cassidy, DO ms3 Shantel Helton, RN RN me1
[2024-10-07] MEDS ORDERED: LORAZEPAM 0.5 MG TABLET ONE (15:01)
--- NOTE | 2024-10-07 15:13 | EDPHYS ---
Physician Documentation [facility] Name: Mali Chahal Age: 29 yrs Sex: Female : 1995 Arrival Date: 10/07/2024 Time: 14:18 Bed 18 Private MD: ED Physician Flakito Cassidy HPI: 10/07 14:40 This 29 yrs old Female presents to ER via EMS with complaints of Probable Seizure. ms3 14:40 29-year-old female with past medical history of pseudoseizures presents to the [facility] emergency department via [facility] after having seizure-like activity. Patient states this occurs when she is under stress as she was recently arrested. EMS notes patient to have 8 episodes without postictal period.. 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 - Infectious Disease History:: Denies. - Social history:: Smoking status: Patient reports the use of cigarette tobacco products, smokes one-half pack cigarettes per day. ROS: 14:40 Constitutional: Negative for fever, and chills. Cardiovascular: Negative for chest ms3 pain, and palpitations. Respiratory: Negative for shortness of breath, cough, wheezing, and pleuritic chest pain, Abdomen/GI: Negative for abdominal pain, nausea, vomiting, diarrhea, and constipation, MS/Extremity: Negative for injury and deformity, Skin: Negative for injury, rash, and discoloration, 14:40 Neuro: Positive for seizure activity, 14:40 Psych: Positive for anxiety, Exam: 14:40 Constitutional: This is a well developed, well nourished patient who is awake, alert, ms3 and in no acute distress. Head/Face: Normocephalic, atraumatic. Cardiovascular: Regular rate and rhythm with a normal S1 and S2. No gallops, murmurs, or rubs. Normal PMI, no JVD. No pulse deficits. Respiratory: Lungs have equal breath sounds bilaterally, clear to auscultation and percussion. No rales, rhonchi or wheezes noted. No increased work of breathing, no retractions or nasal flaring. Back: No spinal tenderness. No costovertebral tenderness. Full range of motion. Skin: Warm, dry with normal turgor. Normal color with no rashes, no lesions, and no evidence of cellulitis. Psych: Awake, alert, with orientation to person, place and time. Behavior, mood, and affect are within normal limits. Vital Signs: 14:23 BP 119 / 87; Pulse 103; Resp 17; Temp 98.2; Pulse Ox 100% ; Weight 52.16 kg; Height 4 me1 ft. 11 in. ; Pain 0/10; 15:00 BP 128 / 70; Pulse 73; Resp 18; Pulse Ox 98% ; me1 14:23 Body Mass Index 23.23 (52.16 kg, 149.86 cm) me1 14:23 Pain Scale: Adult me1 Caridad Coma Score: 14:27 Eye Response: spontaneous(4). Motor Response: obeys commands(6). Verbal Response: me1 oriented(5). Total: 15. MDM: 14:23 Medical Screening Exam initiated ms3 14:40 Differential diagnosis: seizure, Situational reaction vs Pseudoseizure. Data reviewed: ms3 vital signs, nurses notes, and as a result, I will discharge patient. I considered the following discharge prescriptions or medication management in the emergency department Medications were administered in the Emergency Department. See MAR. Counseling: I had a detailed discussion with the patient and/or guardian regarding the historical points, exam findings, and any diagnostic results supporting the discharge/admit diagnosis, the need for outpatient follow up, to return to the emergency department if symptoms worsen or persist or if there are any questions or concerns that arise at home. Special discussion: I discussed with the patient/guardian in detail that at this point there is no indication for admission to the hospital. It is understood, however, that if the symptoms persist or worsen the patient needs to return immediately for re-evaluation. ED course: Patient alert and orient x 4, no apparent distress, nontoxic-appearing. Patient states this occurs when she is under stress. Patient given 0.5 mg Ativan tablet in the emergency department. All questions were answered. Patient to follow-up with neurology in 2 to 3 days. Return precautions discussed including worsening condition worsening any concerns or worsening condition.. Administered Medications: 15:03 Drug: LORazepam PO 0.5 mg PO once Route: PO; me1 15:07 Follow up: Response: No adverse reaction me1 Disposition: 18:39 Chart complete. ms3 Disposition Summary: 10/07/24 14:38 Discharge Ordered Notes: Location: Home ms3 Condition: Stable ms3 Diagnosis - Pseudoseizure ms3 Followup: ms3 - With: Antonio Matias MD - When: 2 - 3 days - Reason: Recheck today's complaints Discharge Instructions: - Discharge Summary Sheet ms3 - Managing Non-Epileptic Seizures, Adult ms3 Forms: - Medication Reconciliation Form ms3 - Antibiotic Education ms3 - Prescription Opioid Use ms3 - Patient Portal Instructions ms3 - Leadership Thank You Letter ms3 Signatures: Flakito Cassidy DO DO ms3 Shantel Helton, RN RN me1
[2024-10-07 15:32] VITALS: TEMP 98.2
[2024-10-07 15:33] VITALS: BP 128/70; O2SAT 98
== END 2024-10-07 15:13 | disposition home or self-care (01) ==
LOC: ER 14:18
DX: F44.5 Conversion disorder with seizures or convulsions (principal); F17.210 Nicotine dependence, cigarettes, uncomplicated
CPT/HCPCS: 99284